=== PATIENT | female | born 1950 | race Caucasian/White ===

== ENCOUNTER 2017-05-26 06:18 | Day surgery (SDC) | payer MEDICARE, BC ==
[2017-05-25 12:16] LABS: BASOPHILS 0.7 % (0-2); EOSINOPHILS 2.9 % (0-7); HEMATOCRIT 36.7 % (36.0-48.0); HEMOGLOBIN 11.7 g/dL (12-16); IMMATURE GRANULOCYTES 3.2 % (0-5); MCH 32.1 pg (26.0-34.0); MCHC 31.9 g/dL (31.0-37.0); MCV 100.8 fL (80.0-100.0); MEAN PLATELET VOLUME 9.5 fL (7.4-10.4); MONOCYTES 6.9 % (2-11); NEUTROPHILS 68.3 % (40-80); PLATELET COUNT 194 10x3/uL (130-400); RBC 3.64 10x6/uL (4.00-5.40); RDW 15.6 % (11.5-14.5); WBC 10.4 10x3/uL (4.8-10.8)
[2017-05-25 12:26] LABS: APTT 26.2 SECONDS (22.8-39.4); INR 0.98 (0.85-1.17); PROTIME 12.8 SECONDS (11.6-15.0)
[2017-05-25 12:27] LABS: ANION GAP 14.6 mmol/L (8-16); CALCIUM 11.3 mg/dL (8.5-10.1); CARBON DIOXIDE 25.7 mmol/L (21.0-32.0); POTASSIUM - SERUM 4.3 mmol/L (3.5-5.1)
[~2017-05-26] VITALS: Ht 154.9 cm; Wt 74.4 kg
--- NOTE | ~2017-05-26 | OP ---
PATIENT NAME: ELISABETH MICHEL MEDICAL RECORD: [id number] :48 LOCATION:[facility] ADMISSION DATE: SURGEON: JANINA MAYS MD REFERRING PHYSICIAN: Dr. Pritchett. PREOPERATIVE DIAGNOSIS: Chronic kidney disease stage 4 going on stage 5. OPERATION PERFORMED: Creation of a left upper extremity brachial artery to cephalic vein arteriovenous fistula. ANESTHESIA: Regional block and IV sedation and monitoring per RESIDENT SERVICES SUPERVISOR. SURGEON: Janina Mays MD PREOPERATIVE NOTE: The patient is very pleasant 66-year-old white female patient who lives near [place], [place]. She has chronic kidney disease and it anticipated she will require dialysis. She was referred to me by Dr. Pritchett for creation of a senior living dialysis access site. She is right-handed. She is believed to have adequate veins in the left upper extremity and is to have a fistula created there today. PROCEDURE: Under a regional block anesthetic and IV sedation and monitoring per RESIDENT SERVICES SUPERVISOR, the patient is prepped and draped in a sterile manner. A Sheridan drain was used as a proximal venous tourniquet. Nitroglycerin paste was applied to the skin of the arm and forearm. Intraoperative ultrasound examination was done which confirmed excellent median cephalic vein and brachial artery at the cubital level with adequate cephalic vein in the upper arm. The tourniquet was removed and a transverse incision placed just beneath the antecubital space and the medial cubital vein and brachial artery were exposed and controlled with elastic loops as needed. Tributaries and the distal median cubital vein were ligated with 4-0 Vicryl ties and the vein transected and beveled. It was flushed with heparinized saline and mobilized to provide adequate length of vein so that the anastomosis could be performed end of vein to side of the artery without undo tension. The vein was flushed with heparinized saline and treated with topical papaverine. The artery was opened over a short distance, approximately 4 millimeters and the artery was flushed proximal and distally with heparinized saline. The anastomosis was then performed with running 7-0 Prolene. The anastomosis sealed with Ethicon Enseal. With release of the occluding loops and clamps, the flow in the fistula was disappointing. The patient was given 1000 units heparin systemically, at that point the artery and vein re-occluded and the anastomosis taken down. I used a Ector balloon catheter to check for patency of the brachial artery above and below and the runoff vein and found no evidence of obstruction and no clot. The vessels were once again flushed with heparinized saline directly and the anastomosis then repeated with running 7-0 Prolene and I did not use Enseal at that point. With release of the occluding loops and clamps, excellent flow developed in the fistula in contrast to the initial result. The wound was irrigated with Ancef/gentamicin solution. It was closed with interrupted inverted 3-0 Vicryl and then running intracuticular 4-0 Monocryl and Dermabond glue. It was dressed with Maxorb AG, Tegaderm, and Cavilon skin prep. The patient was then taken to the recovery room in stable condition. No specimen was submitted. Blood loss was nil. All sponges, instruments, and needles, were accounted for. No drain was used. OPERATIVE REPORT [id number] ELISABETH MICHEL She will be discharged to home today to continue her routine diet, medications, and activities at home. She was given a prescription for Tramadol #10, one every four hours as needed for pain and an appointment is to be scheduled for her to return to see me in my office on Monday, a week. This coming Monday is the 30 of May holiday so will be Monday the week after that. JANINA MAYS MD CC: [id number] DICTATION DATE: 05/26/172156 SUCTION PLATE ROLLER HAND: [id number] 05/26/172153 [facility] 05/26/17 [place] [id number]
[~2017-05-26 06:18] MED LIST: BAYER CHEWABLE81 MG PO; JANUVIA50 MG PO; MACRODANTIN50 MG PO; NORVASC10 MG PO; PRAVACHOL80 MG PO; ROCALTROL0.5 MCG PO; ULTRACET TABLET1 TAB PO; VITAMIN D250000 UNIT PO; ZIAC 10-6.25 MG1 TAB PO
[2017-05-26 07:19] VITALS: BP 136/58; Ht 154.9 cm; Wt 74.4 kg
--- NOTE | 2017-05-26 11:13 | NUR ---
RECIEVED PT FROM OR, NOTED STRONG THRILL AT FISTULA SITE LEFT AC.
[2017-05-26] MEDS ORDERED: ULTRAM50 MG PO (11:19)
--- NOTE | 2017-05-26 15:07 | NUR ---
1230 IV DC WITH CATHER TIP INTACT
== END 2017-05-26 12:45 | disposition home or self-care (01) ==
LOC: D.OPS 06:18 → D.PAN 08:00 → D.OPS 12:45
PROVIDERS: Surgery
DX: N18.4 Chronic kidney disease, stage 4 (severe) (principal); Z01.812 Encounter for preprocedural laboratory examination

== ENCOUNTER → 2017-08-17 14:52 | Outpatient (CLI) | payer MEDICARE, BC ==
[2017-05-26 07:19] VITALS: BMI 31.0
[~2017-08-17 14:52] MED LIST changes: +ULTRAM50 MG PO
[2017-08-17 15:40] LABS: ANION GAP 18.3 mmol/L (8-16); CALCIUM 8.5 mg/dL (8.5-10.1); CARBON DIOXIDE 18.7 mmol/L (21.0-32.0); CREATININE - SERUM 4.1 mg/dL (0.6-1.3)
== END | disposition home or self-care (01) ==
LOC: D.LAB 14:52
PROVIDERS: Internal Medicine Gastroenterology
DX: A04.7 Enterocolitis due to Clostridium difficile (principal); R19.7 Diarrhea, unspecified

== ENCOUNTER 2017-09-20 12:53 | Day surgery (SDC) | payer MEDICARE, BC ==
[2017-09-20 14:01] LABS: BASOPHILS 1.6 % (0-2); HEMATOCRIT 35.4 % (36.0-48.0); HEMOGLOBIN 11.8 g/dL (12-16); IMMATURE GRANULOCYTES 3.8 % (0-5); LYMPHOCYTES 24.1 % (15-50); MCH 31.8 pg (26.0-34.0); MCHC 33.3 g/dL (31.0-37.0); MCV 95.4 fL (80.0-100.0); MEAN PLATELET VOLUME 10.6 fL (7.4-10.4); MONOCYTES 8.1 % (2-11); NEUTROPHILS 58.4 % (40-80); PLATELET COUNT 206 10x3/uL (130-400); RBC 3.71 10x6/uL (4.00-5.40); RDW 14.3 % (11.5-14.5); WBC 8.7 10x3/uL (4.8-10.8)
[2017-09-20 14:17] LABS: ANION GAP 18.6 mmol/L (8-16); CALCIUM 11.8 mg/dL (8.5-10.1); CARBON DIOXIDE 20.6 mmol/L (21.0-32.0); CREATININE - SERUM 3.2 mg/dL (0.6-1.3); POTASSIUM - SERUM 4.2 mmol/L (3.5-5.1)
[2017-09-20 14:29] VITALS: BMI 30.3
--- NOTE | 2017-09-24 12:24 | OP ---
PATIENT NAME: ELISABETH MICHEL MEDICAL RECORD: [id number] :48 LOCATION:[facility] ADMISSION DATE: SURGEON: ELIZABETH BLACK DO DATE OF OPERATION: 09/20/2017 PROCEDURE: Push enteroscopy with fecal microbiota transplant. INDICATIONS FOR PROCEDURE: Recurrent Clostridium difficile colitis and diarrhea. SCOPE: Olympus video pediatric colonoscope. MEDICATIONS: Propofol 100 mg IV per anesthesia. ESTIMATED BLOOD LOSS: None. COMPLICATIONS: None. FINDINGS: Informed consent was given. The patient was made comfortable with the above medication. After reaching an adequate level of sedation by slow IV push, the patient was placed on her left side. The endoscope was then advanced under direct visualization through the mouth down to the jejunum approximately 20-30 cm beyond the ligament of Treitz. In the esophagus, there was evidence of mild LA class A reflux induced esophagitis at the GE junction. Retroflexion was performed in the stomach with visualization of a small sliding hiatal hernia. The remainder of the stomach appeared normal. The endoscope was advanced beyond the pylorus into the duodenum, which appeared normal as well as the jejunum, which appeared normal. In the jejunum, approximately 30 mL of OpenBiome stool was instilled into the small intestine. This was followed by instillation of approximately 60 mL of normal saline to make sure that all of the stool was injected through the working channel. The scope was then slowly withdrawn. The patient tolerated the procedure well, and there were no complications. IMPRESSION: 1. 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 2. Reflux esophagitis grade A. 3. Small sliding hiatal hernia. PLAN AND RECOMMENDATIONS: 1. Discharge home when recovery parameters are met. 2. Continue current diet and current medications. 3. Follow up in GI clinic in 3-4 weeks to discuss symptoms. 4. Notify GI clinic if symptoms worsen or failed to improve within that timeline. TRANSINT:[id number] Voice Confirmation ID: [id number] DOCUMENT ID: [id number] OPERATIVE REPORT [id number] SAVANA MICHELJEMAL Nguyen ELIZABETH BLACK DO at 1224 CC: [id number] DICTATION DATE: 09/20/17 1625 SURGERY ATTENDANT: 09/20/17 1725 [facility] 09/20/17 [place] [id number]
== END 2017-09-20 17:56 | disposition home or self-care (01) ==
LOC: D.OPS 12:53
PROVIDERS: Anesthesiology
DX: A04.71 Enterocolitis due to Clostridium difficile, recurrent (principal); K21.0 Gastro-esophageal reflux disease with esophagitis; K44.9 Diaphragmatic hernia without obstruction or gangrene; Z01.812 Encounter for preprocedural laboratory examination